=== PATIENT | male | born 1960 | race Caucasian/White ===

== ENCOUNTER 2017-04-22 19:28 | Emergency (ER) | payer OTHER ==
--- NOTE | 2017-04-22 20:49 | ED ---
Skin Complaint - HPI Summary HPI Summary: 56M presents with edema to bilateral arms since Saturday. He was diagnosed with bullous pemphigous a couple weeks ago and started on steroids which made him anxious so he stopped a week ago. He saw dermatology who placed him on mycophonolate and said that edema started that date. He denies any pain. He states he did have fever of 99 at home. He had lab work done by derm today. He denies any recent travel, immobilization, surgeries, family or personal history of DVT. - History of Current Complaint Chief Complaint: EDRashSkinAbscess Time Seen by Provider: 04/22/17 19:56 Stated Complaint: ARMS/HANDS SWELLING - Allergy/Home Medications Allergies/Adverse Reactions: Allergies Allergy/AdvReac Type Severity Reaction Status Date / Time No Known Allergies Allergy Verified 12/01/15 11:31 PMH/Surg Hx/FS Hx/Imm Hx Endocrine/Hematology History: Denies: Hx Diabetes Cardiovascular History: Denies: Hx Hypertension, Hx Pacemaker/ICD Respiratory History: Denies: Hx Asthma Sensory History: Denies: Hx Hearing Aid Psychiatric History: Denies: Hx Panic Disorder - Surgical History Surgery Procedure, Year, and Place: T&A, Infectious Disease History: Denies: Traveled Outside the [place] in Last 30 Days - Family History Known Family History: Positive: Cardiac Disease - Social History Alcohol Use: Occasionally Substance Use Type: Reports: None Smoking Status (MU): Unknown if Ever Smoked Review of Systems Negative: Fever Negative: Chest Pain Negative: Shortness Of Breath Positive: Edema Positive: Rash All Other Systems Reviewed And Are Negative: Yes Physical Exam Triage Information Reviewed: Yes Completion Of Physical Exam Limited Due To: Dementia Appearance: Positive: Well-Appearing Skin: Positive: Other - red rash with blisters across body no sign of secondary infection Head/Face: Positive: Normal Head/Face Inspection Eyes: Positive: Normal, Conjunctiva Clear ENT: Positive: Normal ENT inspection, Pharynx normal, TMs normal Respiratory/Lung Sounds: Positive: Clear to Auscultation, Breath Sounds Present Cardiovascular: Positive: Normal, RRR Musculoskeletal: Positive: Strength/ROM Intact - upper extermities, Edema Left - shoulder to wrist, Edema Right - shoulder to wrist, Other - good pulses, capillary refill< 2 secs Course/Dx - Course Course Of Treatment: 56M presents with edema to bilateral arms since Saturday. He was diagnosed with bullous pemphigous a couple weeks ago and started on steroids which made him anxious so he stopped a week ago. He saw dermatology who placed him on mycophonolate and said that edema started that date. He denies any pain. He states he did have fever of 99 at home. He had lab work done by derm today. He denies any recent travel, immobilization, surgeries, family or personal history of DVT. on exam symmetric swelling from shoulder to wrist. no swelling of hands noted or legs. has blisters and red rash consistent with bullous pemphigous without any sign of secondary infection. is also on doxcycline currently. labs today normal except dec h/h. explained lab results to patient. LFTs normal so do not suspect liver cause. discussed with dr vega do not suspect medication reaction as no dependent edema. no risk factors for DVT and symmetric edema so did not get u/s. believe likely from body reaction to rash. told to follow up with derm. afebrile on exam and told patient that 99 is not true fever. patient understands and agrees with plan. - Diagnoses Provider Diagnoses: Bullous pemphigoid, Edema of both upper extremities Discharge - Discharge Plan Condition: Good Disposition: HOME Patient Education Materials: Autoimmune Disease (ED) Referrals: Carmen Vargas MD [Primary Care Provider] - Additional Instructions: Place ice on area Follow up with dermatology Return to ED if develop any fever or any new or worsening symptoms
[2017-04-22 21:19] VITALS: BP 118/68
== END 2017-04-22 21:15 | disposition home or self-care (01) ==
LOC: ED 19:28
DX: L12.0 Bullous pemphigoid (principal); R60.9 Edema, unspecified
CPT/HCPCS: 99281